=== PATIENT | female | born 1985 | race Caucasian/White ===

== ENCOUNTER 2018-05-26 12:50 | Inpatient (IN) | payer OTHER ==
[2018-05-26 13:11] VITALS: BMI 29.2
[2018-05-26] MEDS ORDERED: SODIUM CHLORIDE 0.9% 500 ML INFUS.BAG IV ONE (13:58)
--- NOTE | 2018-05-26 14:28 | PDOC ---
Attending Attestation - HPI HPI: 05/26/18 14:57 The patient is a 33 year old female with a significant past medical history of seizure disorder (on Keppra, carbamazepine, and topiramate chronically and follows with Dr. Clinton with last visit 12/2017), baseline mild confusion, and UTI who presents to the ER with worsening paranoia over the past couple of days. Patient notes she has been confused at baseline for the past year, but has been increasingly more confused. Patient states her keppra dose was increased from 500 twice a day to 2000 twice a day over the past week by [facility] where she was admitted for multiple seizures. Patient reports he had a CT there which was normal. Patient has not followed up with a neurologist since her discharge from [facility]. The patient denies chest pain, shortness of breath, headache, and dizziness. Denies fever, chills, nausea, vomit, diarrhea, and constipation. Denies dysuria, frequency, urgency, and hematuria. Allergies: NKA Past surgical history: None reported. Social history: No reported alcohol, drug, or cigarette use. <Amalia Sue - Last Filed: 05/26/18 14:57> - Resident Resident Name: Sharon Hutton - ED Attending Attestation I have performed the following: I have examined & evaluated the patient, The case was reviewed & discussed with the resident, I agree w/resident's findings & plan, Exceptions are as noted - Physicial Exam PE: GENERAL: Awake, alert, and fully oriented, in no acute distress HEAD: No signs of trauma EYES: PERRLA, EOMI, sclera anicteric, conjunctiva clear ENT: Auricles normal inspection, hearing grossly normal, nares patent, oropharynx clear without exudates. Moist mucosa NECK: Normal ROM, supple, no lymphadenopathy, JVD, or masses LUNGS: Breath sounds equal, clear to auscultation bilaterally. No wheezes, and no crackles HEART: Regular rate and rhythm, normal S1 and S2, no murmurs, rubs or gallops ABDOMEN: Soft, nontender, normoactive bowel sounds. No guarding, no rebound. No masses EXTREMITIES: Normal range of motion, no edema. No clubbing or cyanosis. No cords, erythema, or tenderness NEUROLOGICAL: Cranial nerves II through XII grossly intact. Normal speech, normal gait SKIN: Warm, Dry, normal turgor, no rashes or lesions noted. - Medical Decision Making Pt with recent change in keppra dose, now with paranoia, unusual behavior. She is taking total of 4G of keppra a day, likely her level is too high. Will check labs and levels, plan for admission. <Jennifer Cardenas - Last Filed: 05/26/18 17:44>
--- NOTE | 2018-05-26 14:40 | PDOC ---
History of Present Illness - General Chief Complaint: Altered Mental Status Stated Complaint: CONFUSED,ALTERED MENTAL Time Seen by Provider: 05/26/18 13:34 History Source: Patient Exam Limitations: Other (confusion) - History of Present Illness Initial Comments: This is a 33 YOF with h/o seizure disorder (on Keppra, carbamazepine, and topiramate chronically and follows with Dr. Clinton with last visit 12/2017), baseline mild confusion, and UTI, who p/w worsened paranoia over the past few days, in the setting of large increase in her daily Keppra dose (from 500 bid to 2000 bid, up-titrated over the past week). The notes that she has been paranoid that the people talking outside her bedroom window are laughing at her and coming to get her. She also has been yelling out strange phrases at spiritism, and has been forgetting basic information at home (e.g. about whether or not she drank orange juice an hour before, about who brought her the orange juice, and other simple facts that she should remember). She always has a baseline level of confusion for the past year, but this is much worse than her baseline. She was admitted at [facility] last week for multiple seizures, had a head CT reported as normal by the patient's , and had a medication increase of her Keppra over the past week. They recommended an electroencephalogram but the patient has not yet gotten this or followed up with her neurologist. The patient herself denies suicidal or homicidal ideation and denies auditory or visual hallucinations. Past History - Past Medical History Allergies/Adverse Reactions: Allergies Allergy/AdvReac Type Severity Reaction Status Date / Time No Allergy Information Allergy Verified 05/26/18 13:02 Available Home Medications: Ambulatory Orders Topiramate [Topamax] 200 mg PO BID #60 tablet 03/30/14 Carbamazepine 200 mg PO BID 05/26/18 levETIRAcetam [Keppra -] 1,000 mg PO BID 05/26/18 COPD: No DVT: No Seizures: Yes - Suicide/Smoking/Psychosocial Hx Smoking History: Never smoked Have you smoked in the past 12 months: No Hx Alcohol Use: No Drug/Substance Use Hx: No Substance Use Type: None Review of Systems - Review of Systems Able to Perform ROS?: Yes Constitutional: No: Chills, Fever, Unexplained wgt Loss HEENTM: No: Nose Congestion, Throat Pain Respiratory: No: Cough, Shortness of Breath Cardiac (ROS): No: Chest Pain, Palpitations ABD/GI: No: Constipated, Diarrhea, Nausea, Vomiting : No: Burning, Dysuria Musculoskeletal: No: Back Pain, Neck Pain Integumentary: No: Bruising, Rash Neurological: Yes: Other (confusion). No: Headache, Numbness, Tingling, Weakness, Dizziness Psychiatric: Yes: Sleep Pattern Change, Other (paranoia) Endocrine: No: Unexplained Weight Gain, Unexplained Weight Loss *Physical Exam - Vital Signs Last Vital Signs Temp Pulse Resp BP Pulse Ox 97.1 F L 61 16 122/70 97 05/26/18 13:03 05/26/18 13:03 05/26/18 13:03 05/26/18 13:03 05/26/18 13:03 - Physical Exam General Appearance: Yes: Nourished, Appropriately Dressed, Other (a bit confused but pleasant and appears comfortable, accompanied by at bedside who answers the bulk of the questions, patient contributes little to conversation but does speak 1-2 words occasionally, states this is her baseline). No: Apparent Distress HEENT: positive: EOMI, ZURI, Normal Voice, Hearing Grossly Normal. negative: Scleral Icterus (R), Scleral Icterus (L), Nasal Congestion Neck: positive: Trachea midline, Supple. negative: Tender, Rigid Respiratory/Chest: positive: Lungs Clear, Normal Breath Sounds. negative: Respiratory Distress, Crackles, Rhonchi, Stridor, Wheezing Cardiovascular: positive: Regular Rhythm, Regular Rate, S1, S2. negative: Edema , JVD, Murmur Gastrointestinal/Abdominal: positive: Normal Bowel Sounds, Flat, Soft. negative : Tender, Organomegaly, Pulsatile Mass, Guarding Musculoskeletal: positive: Normal Inspection. negative: Decreased Range of Motion, Vertebral Tenderness Extremity: positive: Normal Capillary Refill, Normal Inspection, Normal Range of Motion. negative: Tender, Cyanosis Integumentary: positive: Normal Color, Dry, Warm. negative: Erythema, Rash, Bruising Neurologic: positive: hadoop admin II-XII NML intact, Fully Oriented (to own name, date, age, place, situation), Alert, Normal Mood/Affect, Normal Response, Motor Strength 5/5, Confused. negative: Facial Droop, Numbness, Sensory Deficit, Disoriented Heart Score/ECG Review #1 Sinus rhythm, rate of 69, normal axis and intervals, no ischemic changes ED Treatment Course - LABORATORY CBC & Chemistry Diagram: 05/26/18 15:00 05/26/18 15:00 - Medications Given in the ED: ED Medications Discontinued Medications Generic Name Dose Route Start Last Admin Trade Name Mukesh PRN Reason Stop Dose Admin Sodium Chloride 1,000 ml 05/26/18 13:58 05/26/18 14:27 Normal Saline - IV 05/26/18 13:59 1,000 ml ONCE ONE Administration Medical Decision Making - Medical Decision Making Adult Pt p/w acute worsening of mental status. Initial Vital Signs Temp Pulse Resp BP Pulse Ox 97.1 F L 61 16 122/70 97 05/26/18 13:03 05/26/18 13:03 05/26/18 13:03 05/26/18 13:03 05/26/18 13:03 Exam: As noted in Physical Exam section. DDX IBNLT: structural (e.g. epilepsy, brain tumor, CVA/TIA, NPH, CJD, ACS, PE, Mamadou disease), infectious (e.g. UTI, PNA, bronchitis, cellulitis, meningitis, neurosyphilis, HIV-associated dementia), VS abnormalities (e.g. fever, hypertensive emergency), toxic-metabolic (e.g. medications, drugs e.g. serotonin syndrome/neuroleptic malignant syndrome or street drugs, electrolytes , hypothyroid, B12 deficiency), psychiatric (e.g. delirium, dementia, psychosis) , TENDERNESS (HUS with AMS, fever, poss seizure), etc. W/U ordered: CBCD CMP Mg Phos TSH Serum preg UA UCx EKG CXR Antiepileptic levels (Keppra, Tegretol, carbamazepine) TX ordered: IVF EKG: Reviewed; results as noted in ECG Review section. 05/26/18 14:[address] Clinton (patient's neurologist). He had not been contacts by he patient or [facility] during or after the admission last week. He did not know about the increase in her Keppra dosage. He will try to come see the patient in the ED today when he has a moment. He recommends staying on the 2000 mg Keppra bid. He recommends considering low-dose Ativan (0.25) bid prn to get through the weekend. He will see her in the office on Tuesday. Laboratory Tests 05/26/18 05/26/18 05/26/18 14:28 15:00 15:00 WBC 6.3 RBC 4.43 Hgb 13.4 Hct 39.4 MCV 88.8 MCH 30.2 MCHC 34.0 RDW 12.9 Plt Count 266 MPV 9.2 Absolute Neuts (auto) 3.6 Neutrophils % 57.2 Lymphocytes % 33.9 D Monocytes % 5.5 Eosinophils % 2.6 Basophils % 0.8 Nucleated RBC % 0 Sodium Potassium Chloride Carbon Dioxide Anion Gap BUN Creatinine Creat Clearance w eGFR Random Glucose Calcium Phosphorus Magnesium Total Bilirubin AST ALT Alkaline Phosphatase Total Protein Albumin TSH Serum , Qual Negative Urine Color Ltyellow Urine Appearance Clear Urine pH 5.0 Ur Specific [place] 1.010 Urine Protein Negative Urine Glucose (UA) Negative Urine Ketones Negative Urine Blood Negative Urine Nitrite Negative Urine Bilirubin Negative Urine Urobilinogen Negative Ur Leukocyte Esterase 1+ H Urine WBC (Auto) 1 Urine RBC (Auto) None Ur Epithelial Cells Rare Opiates Screen Methadone Screen Barbiturate Screen Carbamazepine Phencyclidine Screen Ur Amphetamines Screen MDMA (Ecstasy) Screen Benzodiazepines Screen Cocaine Screen U Marijuana (THC) Screen Alcohol, Quantitative 05/26/18 05/26/18 05/26/18 15:00 15:00 15:00 WBC RBC Hgb Hct MCV MCH MCHC RDW Plt Count MPV Absolute Neuts (auto) Neutrophils % Lymphocytes % Monocytes % Eosinophils % Basophils % Nucleated RBC % Sodium 140 Potassium 4.3 Chloride 107 Carbon Dioxide 22 Anion Gap 11 BUN 6 L Creatinine 0.7 Creat Clearance w eGFR > 60 Random Glucose 98 Calcium 8.6 Phosphorus 3.6 Magnesium 2.2 Total Bilirubin 0.2 AST 14 L ALT 21 Alkaline Phosphatase 114 Total Protein 7.8 Albumin 3.7 TSH 1.30 Serum , Qual Urine Color Urine Appearance Urine pH Ur Specific [place] Urine Protein Urine Glucose (UA) Urine Ketones Urine Blood Urine Nitrite Urine Bilirubin Urine Urobilinogen Ur Leukocyte Esterase Urine WBC (Auto) Urine RBC (Auto) Ur Epithelial Cells Opiates Screen Negative Methadone Screen Negative Barbiturate Screen Negative Carbamazepine 10.6 Phencyclidine Screen Negative Ur Amphetamines Screen Negative MDMA (Ecstasy) Screen Negative Benzodiazepines Screen Negative Cocaine Screen Negative U Marijuana (THC) Screen Negative Alcohol, Quantitative < 5.0 Reassessment: Exam unchanged. ADMIT Pt to be admitted given acute change in mental status. They are unsafe for discharge at this time. They require further hospital observation, workup, and treatment. Microblog sent to [facility] for admission (Patient's PCP is Jack Rabago). 05/26/18 17:25 Spoke with Marie who is on for [facility]. In agreement patient to be admitted to Med/Surg Obs. Decision to Admit order placed to Dr. Wilhelm. Head CT is ordered by [facility] given change in mental status. Vital Signs Temperature 98.2 F 05/26/18 17:48 Pulse Rate 85 05/26/18 17:48 Respiratory Rate 17 05/26/18 17:48 Blood Pressure 138/89 05/26/18 17:48 O2 Sat by Pulse Oximetry (%) 98 05/26/18 17:48 *DC/Admit/Observation/Transfer Diagnosis at time of Disposition: Agitation Altered mental status Qualifiers: Altered mental status type: unspecified Qualified Code(s): R41.82 - Altered mental status, unspecified - Discharge Dispostion Condition at time of disposition: Guarded Decision to Admit order: Yes - Referrals - Patient Instructions - Post Discharge Activity
[2018-05-26 15:26] LABS: URINE APPEARANCE CLEAR; URINE BILIRUBIN NEGATIVE (<2.0 mg/dL); URINE COLOR LTYELLOW; URINE GLUCOSE (UA) NEGATIVE (NEGATIVE); URINE KETONE NEGATIVE (NEGATIVE); URINE NITRITE NEGATIVE (NEGATIVE); URINE PROTEIN NEGATIVE (NEGATIVE); URINE UROBILINOGEN NEGATIVE mg/dL (0.2-1.0)
[2018-05-26 15:28] LABS: URINE LEUK ESTERASE 1+ (NEGATIVE)
[2018-05-26 15:39] LABS: ALBUMIN 3.7 g/dl (3.4-5.0); ANION GAP 11 MMOL/L (8-16); BLOOD UREA NITROGEN 6 mg/dL (7-18); CALCIUM 8.6 mg/dL (8.5-10.1); CHLORIDE 107 mmol/L (98-107); CO2 22 mmol/L (21-32); GLUCOSE,RANDOM 98 mg/dL (74-106); MAGNESIUM 2.2 mg/dL (1.8-2.4); POTASSIUM 4.3 mmol/L (3.5-5.1); SGOT/AST 14 U/L (15-37); SODIUM 140 mmol/L (136-145)
[2018-05-26 15:40] LABS: COCAINE, UR NEGATIVE ng/ml (CUTOFF=300); METHADONE, UR NEGATIVE ng/ml (CUTOFF=300); OPIATES, URI NEGATIVE ng/ml (CUTOFF=300); PHENCYCLIDINE,URINE NEGATIVE ng/ml (CUTOFF=25); URINE AMPHETAMINES NEGATIVE ng/ml (CUTOFF=500); URINE BARBITURATES NEGATIVE ng/ml (CUTOFF=200); URINE BENZODIAZEPINES NEGATIVE ng/ml (CUTOFF=200)
[2018-05-26 15:44] LABS: EPI CELLS RARE /HPF (FEW)
[2018-05-26 15:50] LABS: BASO % 0.8 % (0-2.0); EOS % 2.6 % (0-4.5); HEMATOCRIT 39.4 % (32.4-45.2); HEMOGLOBIN 13.4 GM/dL (10.7-15.3); LYMPH % 33.9 % (8-40); MCH 30.2 pg (25.7-33.7); MEAN CELL VOLUME 88.8 fl (80-96); MEAN PLT VOLUME 9.2 fl (7.5-11.1); MONO % 5.5 % (3.8-10.2); NEUT % 57.2 % (42.8-82.8); PLATELET COUNT 266 K/MM3 (134-434); RBC 4.43 M/mm3 (3.60-5.2); RDW 12.9 % (11.6-15.6); WHITE BLOOD COUNT 6.3 K/mm3 (4.0-10.0)
[2018-05-26 15:51] LABS: ALK PHOS 114 U/L (45-117); BILIRUBIN,TOTAL 0.2 mg/dL (0.2-1.0); CREATININE 0.7 mg/dL (0.55-1.02); PHOSPHOROUS 3.6 mg/dL (2.5-4.9); SGPT/ALT 21 U/L (12-78); TOT PROT 7.8 g/dl (6.4-8.2)
[2018-05-26] MEDS: TOPIRAMATE 200 MG TABLET (FP) PO SCH (21:57)
[2018-05-26] MEDS: levETIRAcetam 500 MG TABLET (FP) PO SCH (21:57)
[2018-05-26] MEDS: carBAMazepine 200 MG TABLET PO SCH (21:57)
--- NOTE | 2018-05-26 22:18 | HP ---
CHIEF COMPLAINT: confusion, ams, paranoia PCP: Dr. Randolph, PCP. Dr. Clinton, neurology HISTORY OF PRESENT ILLNESS: Patient is a 33 year old female with a significant past medical history of epilepsy (On Keppra, carbamazepine, topiramate) and frequent UTIs. She was evaluated in the ED today after her noticed that she was more paranoid with thoughts that others are trying to harm her. Per , patient is increasingly suspicious of her family members and at times believes that they are trying to harm her, poison her or that others are out to hurt her. She is also reported to be yelling out to strangers and has become more forgetful. Her provided the history during the exam as patient stayed mostly quiet even when I asked her questions and deferred to him for answers. reports that patient has a baseline level of mild confusion but for the past year it has progressed and worsened in the last 3 weeks. Patient was admitted to [facility] last week for epilepsy and had a CT performed that was reportedly normal. Her Keppra dose was increased to 2000mg BID. Patient was supposed to follow up with a repeat EEG outpatient, but did not follow up and has not had one for numerous years. Patient denies suicidal or homicidal ideation and denies auditory or visual hallucinations. She answers questions with minimal eye contact. She defers to her to answer questions for her. ER course was notable for: (1) head ct pending (2) (3) Recent Travel: PAST MEDICAL HISTORY: epilepsy (On Keppra, carbamazepine, topiramate) and frequent UTIs. PAST SURGICAL HISTORY: Social History: Smoking: n/a Alcohol: n/a Drugs: n/a Family History: Allergies No Allergy Information Available Allergy (Verified 05/26/18 13:02) HOME MEDICATIONS: Home Medications Medication Instructions Recorded Topiramate [Topamax] 200 mg PO BID #60 tablet 03/30/14 Carbamazepine 200 mg PO BID 05/26/18 levETIRAcetam [Keppra -] 1,000 mg PO BID 05/26/18 PHYSICAL EXAMINATION Vital Signs - 24 hr 05/26/18 05/26/18 05/26/18 13:03 17:48 21:00 Temperature 97.1 F L 98.2 F Pulse Rate 61 Pulse Rate [ 85 Left Radial] Respiratory 16 17 Rate Blood Pressure 122/70 Blood Pressure 138/89 [Right Arm] O2 Sat by Pulse 97 98 98 Oximetry (%) 05/26/18 05/26/18 21:49 22:00 Temperature 97.5 F L 97.5 F L Pulse Rate 63 63 Pulse Rate [ Left Radial] Respiratory 18 18 Rate Blood Pressure 140/88 140/88 Blood Pressure [Right Arm] O2 Sat by Pulse Oximetry (%) GENERAL: Awake, alert, forgetful, withdrawn HEAD: Normal with no signs of trauma. EYES: Pupils equal, round and reactive to light, extraocular movements intact, sclera anicteric, conjunctiva clear. No lid lag. EARS, NOSE, THROAT: Ears normal, nares patent, oropharynx clear without exudates. Moist mucous membranes. NECK: Normal range of motion, supple without lymphadenopathy, JVD, or masses. LUNGS: Breath sounds equal, clear to auscultation bilaterally. No wheezes, and no crackles. No accessory muscle use. HEART: Regular rate and rhythm, normal S1 and S2 without murmur, rub or gallop. ABDOMEN: Soft, nontender, not distended, normoactive bowel sounds, no guarding, no rebound, no masses. No hepatomegaly or splenomegaly. MUSCULOSKELETAL: Normal range of motion at all joints. No bony deformities or tenderness. No CVA tenderness. UPPER EXTREMITIES: 2+ pulses, warm, well-perfused. No cyanosis. No clubbing. No peripheral edema. LOWER EXTREMITIES: 2+ pulses, warm, well-perfused. No calf tenderness. No peripheral edema. NEUROLOGICAL: withdrawn PSYCHIATRIC: flat affect Laboratory Results - last 24 hr 05/26/18 05/26/18 05/26/18 14:28 15:00 15:00 WBC 6.3 RBC 4.43 Hgb 13.4 Hct 39.4 MCV 88.8 MCH 30.2 MCHC 34.0 RDW 12.9 Plt Count 266 MPV 9.2 Absolute Neuts (auto) 3.6 Neutrophils % 57.2 Lymphocytes % 33.9 D Monocytes % 5.5 Eosinophils % 2.6 Basophils % 0.8 Nucleated RBC % 0 Sodium Potassium Chloride Carbon Dioxide Anion Gap BUN Creatinine Creat Clearance w eGFR Random Glucose Calcium Phosphorus Magnesium Total Bilirubin AST ALT Alkaline Phosphatase Total Protein Albumin TSH Serum , Qual Negative Urine Color Ltyellow Urine Appearance Clear Urine pH 5.0 Ur Specific [place] 1.010 Urine Protein Negative Urine Glucose (UA) Negative Urine Ketones Negative Urine Blood Negative Urine Nitrite Negative Urine Bilirubin Negative Urine Urobilinogen Negative Ur Leukocyte Esterase 1+ H Urine WBC (Auto) 1 Urine RBC (Auto) None Ur Epithelial Cells Rare Opiates Screen Methadone Screen Barbiturate Screen Carbamazepine Phencyclidine Screen Ur Amphetamines Screen MDMA (Ecstasy) Screen Benzodiazepines Screen Cocaine Screen U Marijuana (THC) Screen Alcohol, Quantitative 05/26/18 05/26/18 05/26/18 15:00 15:00 15:00 WBC RBC Hgb Hct MCV MCH MCHC RDW Plt Count MPV Absolute Neuts (auto) Neutrophils % Lymphocytes % Monocytes % Eosinophils % Basophils % Nucleated RBC % Sodium 140 Potassium 4.3 Chloride 107 Carbon Dioxide 22 Anion Gap 11 BUN 6 L Creatinine 0.7 Creat Clearance w eGFR > 60 Random Glucose 98 Calcium 8.6 Phosphorus 3.6 Magnesium 2.2 Total Bilirubin 0.2 AST 14 L ALT 21 Alkaline Phosphatase 114 Total Protein 7.8 Albumin 3.7 TSH 1.30 Serum , Qual Urine Color Urine Appearance Urine pH Ur Specific [place] Urine Protein Urine Glucose (UA) Urine Ketones Urine Blood Urine Nitrite Urine Bilirubin Urine Urobilinogen Ur Leukocyte Esterase Urine WBC (Auto) Urine RBC (Auto) Ur Epithelial Cells Opiates Screen Negative Methadone Screen Negative Barbiturate Screen Negative Carbamazepine 10.6 Phencyclidine Screen Negative Ur Amphetamines Screen Negative MDMA (Ecstasy) Screen Negative Benzodiazepines Screen Negative Cocaine Screen Negative U Marijuana (THC) Screen Negative Alcohol, Quantitative < 5.0 ASSESSMENT/PLAN: Patient is a 33 year old female with a significant past medical history of epilepsy (On Keppra, carbamazepine, topiramate) and frequent UTIs. She was evaluated in the ED today after her noticed that she was more paranoid with thoughts that others are trying to harm her. Per , patient is increasingly suspicious of her family members and at times believes that they are trying to harm her, poison her or that others are out to hurt her. She is also reported to be yelling out to strangers and has become more forgetful. Patient is being admitted for altered mentation and confusion in the setting of epilepsy. Neurology has been consulted. . Neuro: Metabolic encephalopathy in the setting of chronic seizures. Rule acute out infection. monitor electrolytes, daily labs and vitals. blood and urine cultures pending. Antiepileptic levels (Keppra, Tegretol, carbamazepine) pending. EEG per neurology. Continue Keppra, tegretol, carbamzepine. Maintain seizure precautions. Ativan 1mg prn ordered for breakthrough seizures. Continue to monitor mental status. Utox pending. Seizures/epilepsy: last reported seizure 1 week ago. Continue Keppra 2000mg bid, tegretol and carbamzepine. Ativan 1mg q6 prn for breakthrough seizures. Neuro consult. Psyche: Paranoia, anxiety: Unclear etiology. Medication side effect? Psyche evaluation. Monitor mental status. Maintain safety. fen ivf hydration monitor electrolytes regular diet prophy heparin bid physical therapy Visit type - Emergency Visit Emergency Visit: Yes ED Registration Date: 05/26/18 Care time: The patient presented to the Emergency Department on the above date and was hospitalized for further evaluation of their emergent condition. - New Patient This patient is new to me today: Yes Date on this admission: 05/26/18 - Critical Care Critical Care patient: No Hospitalist Screening - Colonoscopy Questionnaire Colonoscopy Questionnaire: Colonoscopy Questionnaire - Patient: 50 - 75 years old and never had a screening colonoscopy: Unknown History of colon or rectal polyps, or CA: Unknown History of IBD, Crohn's disease or UC: Unknown History of abdominal radiation therapy as a child: Unknown - Relative: 1 with colon or rectal CA, or polyps at age 60 or younger: Unknown Colon or rectal CA diagnosed at age 45 or younger: Unknown Multiple relatives with colon or rectal CA: Unknown - Outcome: Screening Result: Negative Screen
[2018-05-26] MEDS ORDERED: LORazepam 2 MG/ML SDV VIAL IVPUSH PRN (22:47)
[2018-05-26] MEDS: SODIUM CHLORIDE 1,000 ML IV SCH (23:45)
[2018-05-27 07:55] LABS: HEMATOCRIT 38.6 % (32.4-45.2); HEMOGLOBIN 12.9 GM/dL (10.7-15.3); MCH 29.7 pg (25.7-33.7); MCHC 33.4 g/dl (32.0-36.0); MEAN CELL VOLUME 88.7 fl (80-96); MEAN PLT VOLUME 8.6 fl (7.5-11.1); PLATELET COUNT 240 K/MM3 (134-434); RBC 4.35 M/mm3 (3.60-5.2); RDW 12.8 % (11.6-15.6); WHITE BLOOD COUNT 6.1 K/mm3 (4.0-10.0)
[2018-05-27 08:30] LABS: ANION GAP 10 MMOL/L (8-16); BLOOD UREA NITROGEN 5 mg/dL (7-18); CALCIUM 8.2 mg/dL (8.5-10.1); CHLORIDE 112 mmol/L (98-107); CO2 20 mmol/L (21-32); GLUCOSE,RANDOM 90 mg/dL (74-106); MAGNESIUM 2.1 mg/dL (1.8-2.4); POTASSIUM 3.8 mmol/L (3.5-5.1); SODIUM 142 mmol/L (136-145)
[2018-05-27 09:07] LABS: CREATININE 0.6 mg/dL (0.55-1.02)
[2018-05-27] MEDS ORDERED: PT OWN MED DRAWER 7, Y5N ONE ×6 (09:59→22:22)
[2018-05-27] MEDS: carBAMazepine 200 MG TABLET PO SCH ×2 (10:06→22:11)
[2018-05-27] MEDS: TOPIRAMATE 200 MG TABLET (FP) PO SCH ×2 (10:06→22:11)
[2018-05-27] MEDS: levETIRAcetam 500 MG TABLET (FP) PO SCH ×2 (10:06→22:10)
[2018-05-27] MEDS: SODIUM CHLORIDE 1,000 ML IV SCH (18:09)
--- NOTE | 2018-05-28 09:27 | PN ---
Progress Note, Physician History of Present Illness: notified today of admission - Current Medication List Current Medications: Active Medications Carbamazepine (Tegretol -) 200 mg PO BID [facility] Last Admin: 05/27/18 22:11 Dose: 200 mg Sodium Chloride (Normal Saline -) 1,000 mls @ 83 mls/hr IV ASDIR [facility] Last Admin: 05/26/18 23:45 Dose: 83 mls/hr Levetiracetam (Keppra -) 2,000 mg PO BID [facility] Last Admin: 05/27/18 22:10 Dose: 2,000 mg Lorazepam (Ativan Injection -) 1 mg IVPUSH Q6H PRN PRN Reason: breakthrough seizures Last Admin: 05/28/18 00:26 Dose: 1 mg Topiramate (Topamax -) 200 mg PO BID [facility] Last Admin: 05/27/18 22:11 Dose: 200 mg - Objective Vital Signs: Vital Signs Temperature 97.8 F 05/28/18 06:00 Pulse Rate 71 05/28/18 06:00 Respiratory Rate 18 05/28/18 06:00 Blood Pressure 128/85 05/28/18 06:00 O2 Sat by Pulse Oximetry (%) 98 05/27/18 21:00 Cardiovascular: Yes: S1, S2 Respiratory: Yes: Regular, CTA Bilaterally Gastrointestinal: Yes: Normal Bowel Sounds, Soft Neurological: Yes: Alert, Oriented Labs: CBC, BMP 05/27/18 07:00 05/27/18 07:00 Problem List - Problems (1) Adjustment reaction with anxiety and depression Assessment/Plan: -PSYCHIATRY CONSULT Code(s): F43.23 - ADJUSTMENT DISORDER WITH MIXED ANXIETY AND DEPRESSED MOOD (2) Seizure Assessment/Plan: -NEUROLOGY CONSULT -OBTAIN OLD RECORDS Code(s): R56.9 - UNSPECIFIED CONVULSIONS
[2018-05-28] MEDS: levETIRAcetam 500 MG TABLET (FP) PO SCH ×2 (10:07→21:34)
[2018-05-28] MEDS: carBAMazepine 200 MG TABLET PO SCH ×2 (10:08→21:35)
[2018-05-28] MEDS: TOPIRAMATE 200 MG TABLET (FP) PO SCH ×2 (10:08→21:35)
[2018-05-29] MEDS ORDERED: PT OWN MED DRAWER 7, Y5N ONE ×3 (09:56→21:26)
[2018-05-29] MEDS: levETIRAcetam 500 MG TABLET (FP) PO SCH ×2 (09:57→21:32)
[2018-05-29] MEDS: TOPIRAMATE 200 MG TABLET (FP) PO SCH ×2 (09:58→21:33)
[2018-05-29] MEDS: carBAMazepine 200 MG TABLET PO SCH ×2 (09:58→21:33)
--- NOTE | 2018-05-29 10:33 | CON.PSY ---
Psychiatry Consult Chief Complaint: 33 year old female brought to ER for ? psychotic like behaviour. reports that she has become inctreasingly paranoid sine discharge from [facility] for Seizure Disorder. Staff report she isbehaving strande and suspicious and not eating. Symptoms: reports: Hallucinations, Paranoia - Previous Psychiatric Treatment Outpatient: None Inpatient: None - Current Medications Current Medications: Active Medications Carbamazepine (Tegretol -) 200 mg PO BID [facility] Last Admin: 05/29/18 09:58 Dose: 200 mg Levetiracetam (Keppra -) 2,000 mg PO BID [facility] Last Admin: 05/29/18 09:57 Dose: 2,000 mg Lorazepam (Ativan Injection -) 1 mg IVPUSH Q6H PRN PRN Reason: breakthrough seizures Last Admin: 05/28/18 00:26 Dose: 1 mg Risperidone (Risperdal -) 1 mg PO BID [facility] Topiramate (Topamax -) 200 mg PO BID [facility] Last Admin: 05/29/18 09:58 Dose: 200 mg - Allergies Allergies: Allergies Allergy/AdvReac Type Severity Reaction Status Date / Time No Known Allergies Allergy Verified 02/18/16 00:27 - Current Living Status Usual Living Arrangement: With Spouse - Current Mental Status Evaluation Appearance: Disheveled Attitude: Suspicious - Affect Affect: Constrictive Appropriateness: Not Appropriate - Mood Mood: Anxious - Speech/Language Expressive: Coherent - Psychomotor Activity Psychomotor Activity: Slowed - Thought Process Thought Process: Circumstantial - Thought Content Hallucinations: Present Type: Visual Delusions: Absent Type: Persectory - Self Perception Self Perception: No Impairment - Cognition Attention: Alert Orientation: Time Memory, Short Term: 3/3 Memory, Remote with Promptin/3 - Concentration Serial Sevens Intact: No Simple Calculations Intact: No - Abstraction Proverb Interpretation: Impaired Judgement: Moderately Impaired - Insight Insight: Impaired - Impulse Control Impulse Control: Minimally Impaired - Suicidal Ideation Suicidal Ideation: No - Homicidal Ideation Homicidal Ideation: No Assessment/Plan 1) risperidal 1mg po bid. 2) will follow.
[2018-05-29] MEDS ORDERED: risperiDONE 1 MG TABLET (FP) PO ONE (11:00)
--- NOTE | 2018-05-29 15:01 | CON.NEURO ---
Consult Consult Specialty:: Oz Referred by:: .NET PROGRAMMER - History of Present Illness History of Present Illness: this is a 33-year-old right-handed [place]ayan-speaking female patient well known to me from the office with history of seizure disorder/mild mental retardation/ anxiety presented to the hospital I spoke to the emergency room on Tuesday who told me that the patient will be discharged as the patient came in with paranoia and no seizure activity patient had a recent seizure activity and she went to [facility] she was admitted for 3 days the didn't call me for any neurological consult. Patient is on a combination of Topamax which helps also the migraine headache Tegretol for seizure and Keppra for seizure. Patient has been on higher dosage of the Keppra to control her seizures she has been doing very well over the past 6-12 month. Since admission to the hospital patient with no reported seizure-like activity patient has been seen patient was started on risperidone. - History Source History Provided By: Patient - Past Medical History ...LMP: 06/20/14 - Alcohol/Substance Use Hx Alcohol Use: No History of Substance Use: reports: None - Smoking History Smoking history: Never smoked Have you smoked in the past 12 months: No Aproximately how many cigarettes per day: 0 - Social History Usual Living Arrangement: With Spouse ADL: Independent History of Recent Travel: No Home Medications - Allergies Allergies/Adverse Reactions: Allergies Allergy/AdvReac Type Severity Reaction Status Date / Time No Known Allergies Allergy Verified 02/18/16 00:27 - Home Medications Home Medications: Ambulatory Orders Topiramate [Topamax] 200 mg PO BID #60 tablet 03/30/14 Levetiracetam [Keppra] 2,000 mg PO BID 05/11/15 Topiramate [Topamax] 200 mg PO BID #60 tablet 06/09/15 Ibuprofen [Motrin -] 400 mg PO PRN PRN 02/18/16 Carbamazepine 200 mg PO BID 05/26/18 Folic Acid 1 mg PO BID 05/26/18 levETIRAcetam [Keppra -] 1,000 mg PO BID 05/26/18 Review of Systems - Review of Systems Constitutional: reports: No Symptoms Eyes: reports: No Symptoms Psychiatric: reports: Anxiety, Depression, Paranoia Physical Exam-Neuro Vital Signs: Vital Signs Temperature 98 F 05/29/18 09:00 Pulse Rate 70 05/29/18 09:00 Respiratory Rate 20 05/29/18 09:00 Blood Pressure 147/95 05/29/18 09:00 O2 Sat by Pulse Oximetry (%) 98 05/29/18 09:00 Constitutional: Yes: Well Nourished Neck: Yes: WNL Cardiovascular: Yes: WNL Labs: CBC, BMP 05/27/18 07:00 05/27/18 07:00 - Neuro Exam Level Of Consciousness: Yes: Oriented to Person, Oriented to Place, Oriented to Time Eyes: Yes: PERRLA Speech: WNL Dominant Hand: Right Cranial Nerves II-XII Intact: Yes Gag: Present DTR's: 1+ Left Bicep, 1+ Right Bicep, 1+ Left Brachioradialis, 1+ Right Brachioradialis Response to light touch: Normal Response to pain prick: Normal Response to temperature: Normal Problem List - Problems (1) Altered mental status Assessment/Plan: patient with a long-standing history of anxiety patient has been on Keppra which is very safe medication but associated with behavioral changes ppatient is seizure control No reported seizure since admission Patient was started on risperidone by psychiatrist My plan is to discharge the patient Start tapering the Keppra very slowly Start lamotrigine which will be a good seizure medication and behavioral medicine as a mood stabilizer thank you very much for referring this patient for neurological consultation Code(s): R41.82 - ALTERED MENTAL STATUS, UNSPECIFIED Qualifiers: Altered mental status type: unspecified Qualified Code(s): R41.82 - Altered mental status, unspecified (2) Seizure Code(s): R56.9 - UNSPECIFIED CONVULSIONS
--- NOTE | 2018-05-29 15:38 | PN ---
Progress Note, Physician Chief Complaint: EVENTS NOTED AND REVIEWED PATIENT IS SUSPICIOUS/PARANOID BEDSIDE - Current Medication List Current Medications: Active Medications Carbamazepine (Tegretol -) 200 mg PO BID [facility] Last Admin: 05/29/18 09:58 Dose: 200 mg Levetiracetam (Keppra -) 1,500 mg PO BID LORIN Lorazepam (Ativan Injection -) 1 mg IVPUSH Q6H PRN PRN Reason: breakthrough seizures Last Admin: 05/28/18 00:26 Dose: 1 mg Risperidone (Risperdal -) 1 mg PO BID LORIN Topiramate (Topamax -) 200 mg PO BID [facility] Last Admin: 05/29/18 09:58 Dose: 200 mg - Objective Vital Signs: Vital Signs Temperature 98.4 F 05/29/18 15:24 Pulse Rate 82 05/29/18 15:24 Respiratory Rate 18 05/29/18 15:24 Blood Pressure 118/88 05/29/18 15:24 O2 Sat by Pulse Oximetry (%) 98 05/29/18 09:00 Constitutional: Yes: Mild Distress Eyes: Yes: WNL HENT: Yes: WNL Neck: Yes: WNL Cardiovascular: Yes: WNL Respiratory: Yes: WNL Gastrointestinal: Yes: WNL Genitourinary: Yes: WNL Musculoskeletal: Yes: Muscle Weakness Extremities: Yes: WNL Edema: No Peripheral Pulses WNL: Yes Integumentary: Yes: WNL Wound/Incision: Yes: Clean/Dry Neurological: Yes: Pre-Existing Deficit, Seizure, Other ...Motor Strength: WNL Psychiatric: Yes: Other Labs: CBC, BMP 05/27/18 07:00 05/27/18 07:00 Problem List - Problems (1) Paranoid disorder Code(s): F22 - DELUSIONAL DISORDERS (2) Schizophrenia Code(s): F20.9 - SCHIZOPHRENIA, UNSPECIFIED (3) Adjustment reaction with anxiety and depression Code(s): F43.23 - ADJUSTMENT DISORDER WITH MIXED ANXIETY AND DEPRESSED MOOD (4) Altered mental status Code(s): R41.82 - ALTERED MENTAL STATUS, UNSPECIFIED Qualifiers: Altered mental status type: unspecified Qualified Code(s): R41.82 - Altered mental status, unspecified (5) Seizure disorder Code(s): G40.909 - EPILEPSY, UNSP, NOT INTRACTABLE, WITHOUT STATUS EPILEPTICUS (6) Tremor Code(s): R25.1 - TREMOR, UNSPECIFIED (7) UTI (lower urinary tract infection) Code(s): N39.0 - URINARY TRACT INFECTION, SITE NOT SPECIFIED Assessment/Plan D/W DR [facility] WILL START KEPPRA TO TAPER 1500MG BID FROM 200MG BID CONTINUE RISPERDOL 1MG BID TOPAMAX/TEGRETOL CONTINUE WILL ADD LAMICTAL 100MG DAILY AT DISCHARGE ONCE CLEARED BY PSYCHIATRY SEIZURE PRECAUTIONS
[2018-05-29] MEDS ORDERED: risperiDONE 1 MG TABLET (FP) PO SCH (22:00)
--- NOTE | 2018-05-30 10:45 | PN ---
Progress Note (short form) - Note Progress Note: Patient seen for Psych follow up.Alert, pleasant, coperative, making good eye contact and smiling. Appears better and does not appear to be Hallucinating or delusional at5 this time. Patient eating well. Not displaying any bselfc damaging behaviour. PLan; Reduce Risperidone 1mg po hs only. 2) discharge home when medically stable.
[2018-05-30] MEDS: levETIRAcetam 500 MG TABLET (FP) PO SCH (11:08)
[2018-05-30] MEDS: TOPIRAMATE 200 MG TABLET (FP) PO SCH (11:09)
[2018-05-30] MEDS: carBAMazepine 200 MG TABLET PO SCH (11:09)
[2018-05-30 15:07] VITALS: BP 112/76; PULSE 79; TEMP 98.5
--- NOTE | 2018-05-30 15:26 | DS ---
Physical Examination Vital Signs: Vital Signs Temperature 98.5 F 05/30/18 15:06 Pulse Rate 79 05/30/18 15:06 Respiratory Rate 18 05/30/18 15:06 Blood Pressure 112/76 05/30/18 15:06 O2 Sat by Pulse Oximetry (%) 98 05/29/18 21:00 Constitutional: Yes: No Distress Eyes: Yes: WNL HENT: Yes: WNL Neck: Yes: WNL Cardiovascular: Yes: WNL Respiratory: Yes: WNL Gastrointestinal: Yes: WNL Renal/: Yes: WNL Musculoskeletal: Yes: WNL Extremities: Yes: WNL Edema: No Peripheral Pulses WNL: Yes Integumentary: Yes: WNL Wound/Incision: Yes: Clean/Dry Neurological: Yes: WNL ...Motor Strength: WNL Psychiatric: Yes: Other Labs: CBC, BMP 05/27/18 07:00 05/27/18 07:00 Discharge Summary Reason For Visit: ALTERED MENTAL STATUS,AGITATION Current Active Problems Adjustment reaction with anxiety and depression (Acute) Agitation (Acute) Altered mental status (Acute) Paranoid disorder (Acute) Schizophrenia (Acute) Procedures: Principal: CT SCAN HEAD Hospital Course: ADMITTED SEIZURE D/O ACUTE PSYCHOSIS SCIZOPHRENIA, TREATED WITH RISPERDOL, PSYCHIATRY AND NEURO EVAL. PATIENT WILL BE TAPERED OFF KEPPRA AND STARTED ON LAMICTAL. WILL NEED NEUROLOGY EVAL IN 1 WEEK. Condition: Improved - Instructions Diet, Activity, Other Instructions: KEPPRA TAPERING DOSE 500MG TABS TAKE 3 TABS IN MORNING AND 3 TABS AT NIGHT FOR 7 DAYS THEN 2 TABS IN THE MORNING AND 2 TABS AT NIGHT FOR 7 DAYS THEN 1 TAB IN MORNING AND 1 TAB AT NIGHT FOR 7 DAYS THEN 1 TAB DAILY FOR 7 DAYS THEN STOP START LAMICTAL 100MG DAILY AND SEE DR [facility]UR[facility]Y IN 1 WEEK THEN SEE YOUR PRIMARY DOCTOR ARMANDO TOLBERT IN 1-2 WEEKS FOR FOLLOW UP Disposition: HOME - Home Medications Comprehensive Discharge Medication List: Ambulatory Orders Topiramate [Topamax] 200 mg PO BID #60 tablet 03/30/14 Levetiracetam [Keppra] 2,000 mg PO BID 05/11/15 Topiramate [Topamax] 200 mg PO BID #60 tablet 06/09/15 Ibuprofen [Motrin -] 400 mg PO PRN PRN 02/18/16 Carbamazepine 200 mg PO BID 05/26/18 Folic Acid 1 mg PO BID 05/26/18 levETIRAcetam [Keppra -] 1,000 mg PO BID 05/26/18 Lamotrigine [Lamictal -] 100 mg PO DAILY #30 tablet 05/30/18 Risperidone [Risperdal -] 1 mg PO BID #60 tablet 05/30/18 levETIRAcetam [Keppra -] 500 mg PO BID #90 tablet 05/30/18
[2018-05-31] MEDS ORDERED: risperiDONE 1 MG TABLET (FP) PO SCH (10:00)
== END 2018-05-30 17:27 | disposition home or self-care (01) | DRG 760 ==
LOC: JER 12:50 → JERBED 16:55 → MERGE 16:55 → J8W 20:48
PROVIDERS: ADMIT Family Medicine; ATTEND Family Medicine
DX: F22 Delusional disorders (principal); G93.41 Metabolic encephalopathy; G40.909 Epilepsy, unspecified, not intractable, without status epilepticus; F43.23 Adjustment disorder with mixed anxiety and depressed mood; F20.9 Schizophrenia, unspecified; R25.1 Tremor, unspecified; N39.0 Urinary tract infection, site not specified; R41.82 Altered mental status, unspecified
CPT/HCPCS: 36415; 70450-TC; 80048; 80053; 80156; 80201; 80307; 81003; 81015; 82607; 82746; 83735; 84100; 84443; 84703; 85025; 85027; 87040; 87086; 99283-25; J2794; J7030

== ENCOUNTER → 2018-11-28 | Emergency (ER) | payer OTHER ==
[~2018-11-28] MED LIST: TOPIRAMATE 200 MG TABLET (FP) PO SCH; levETIRAcetam 500 MG TABLET (FP) PO SCH
--- NOTE | 2018-11-28 16:40 | PDOC ---
Rapid Medical Evaluation Time Seen by Provider: 11/28/18 16:32 Medical Evaluation: Allergies Allergy/AdvReac Type Severity Reaction Status Date / Time No Known Allergies Allergy Verified 02/18/16 00:27 11/28/18 16:34 I have performed a brief in-person evaluation of this patient. The patient presents with a chief complaint of: sent by neuro for admit Pertinent physical exam findings: Slow to respond to questions. CNII-XII grossly intact. I have ordered the following: labs, urine, ekg, cxr The patient will proceed to the ED for further evaluation. 11/28/18 16:40 Discharge Disposition - Diagnosis Seizure disorder - Referrals - Patient Instructions - Post Discharge Activity
[2018-11-28 16:42] VITALS: BP 143/97; PULSE 82; TEMP 98.5; BMI 30.9
[2018-11-28 17:14] LABS: EOS % 1.5 % (0-4.5); HEMATOCRIT 40.7 % (32.4-45.2); HEMOGLOBIN 14.1 GM/dL (10.7-15.3); LYMPH % 29.8 % (8-40); MCH 30.1 pg (25.7-33.7); MCHC 34.6 g/dl (32.0-36.0); MONO % 6.6 % (3.8-10.2); NEUT % 61.1 % (42.8-82.8); PLATELET COUNT 301 K/MM3 (134-434); RBC 4.68 M/mm3 (3.60-5.2); RDW 13.5 % (11.6-15.6); WHITE BLOOD COUNT 8.6 K/mm3 (4.0-10.0)
[2018-11-28 17:23] LABS: URINE APPEARANCE CLEAR; URINE BILIRUBIN NEGATIVE (<2.0 mg/dL); URINE COLOR COLORLESS; URINE GLUCOSE (UA) NEGATIVE (NEGATIVE); URINE KETONE NEGATIVE (NEGATIVE); URINE LEUK ESTERASE NEGATIVE (NEGATIVE); URINE NITRITE NEGATIVE (NEGATIVE); URINE PROTEIN NEGATIVE (NEGATIVE); URINE UROBILINOGEN NEGATIVE mg/dL (0.2-1.0)
[2018-11-28 17:26] LABS: HCG,QUALITATIVE URINE Negative
[2018-11-28 17:32] LABS: ALBUMIN 3.8 g/dl (3.4-5.0); ALK PHOS 144 U/L (45-117); ANION GAP 7 MMOL/L (8-16); BILIRUBIN,TOTAL 0.2 mg/dL (0.2-1); BLOOD UREA NITROGEN 8 mg/dL (7-18); CALCIUM 8.8 mg/dL (8.5-10.1); CHLORIDE 106 mmol/L (98-107); CO2 21 mmol/L (21-32); CREATININE 0.7 mg/dL (0.55-1.3); GLUCOSE,RANDOM 108 mg/dL (74-106); SGPT/ALT 23 U/L (13-61); SODIUM 134 mmol/L (136-145); TOT PROT 8.1 g/dl (6.4-8.2)
[2018-11-28 17:33] LABS: POTASSIUM 3.8 mmol/L (3.5-5.1); SGOT/AST 19 U/L (15-37)
--- NOTE | 2018-11-28 17:51 | HP ---
Admitting History and Physical - Primary Care Physician PCP: Diane Clinton - Admission History of Present Illness: this is a very pleasant 33-year-old right-handed woman presents to the [facility] for elective admission for video EEG monitoring patient with a history of epilepsy for many years. Patient speaks only Pashto patient presents with her family and her . Patient has no children patient describes about to 3 seizures a month. Patient used to have many seizures in the past. Patient was advised to be admitted to [facility] for 72-96 hour admission to monitor her at night and control her antiseizure medication patient is currently on 3 antiseizure medication that would be continued and tapered accordingly. 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 ...LMP: 06/20/14 - Smoking History Smoking history: Never smoked Have you smoked in the past 12 months: No Aproximately how many cigarettes per day: 0 - Alcohol/Substance Use Hx Alcohol Use: No History of Substance Use: reports: None - Social History ADL: Independent History of Recent Travel: No Home Medications - Allergies Allergies/Adverse Reactions: Allergies Allergy/AdvReac Type Severity Reaction Status Date / Time No Known Allergies Allergy Verified 11/28/18 16:37 - Home Medications Home Medications: Ambulatory Orders Topiramate [Topamax] 200 mg PO BID #60 tablet 06/09/15 Carbamazepine 200 mg PO BID 05/26/18 Folic Acid 1 mg PO BID 05/26/18 Lamotrigine [Lamictal -] 200 mg PO DAILY 11/28/18 Family Disease History - Family Disease History Family History: Denies (seizure) Review of Systems - Review of Systems Constitutional: reports: No Symptoms Eyes: reports: No Symptoms HENT: reports: No Symptoms Physical Examination Vital Signs: Vital Signs Temperature 98.5 F 11/28/18 16:37 Pulse Rate 82 11/28/18 16:37 Respiratory Rate 16 11/28/18 16:37 Blood Pressure 143/97 11/28/18 16:37 O2 Sat by Pulse Oximetry (%) 98 11/28/18 16:37 Constitutional: Yes: Well Nourished Eyes: Yes: WNL HENT: Yes: WNL Neurological: Yes: Alert, Oriented, Babinski negative ...Motor Strength: WNL Labs: CBC, BMP 11/28/18 16:54 11/28/18 16:54 Problem List - Problems (1) Seizure disorder Assessment/Plan: 1. Please admitted to the medical floor for monitoring 2. Video EEG hookup 3. Seizure precautions. 4. Continue Topamax the same. 5. Continue Keppra the same. 6. Continue lamotrigine the same. 7. Blood work tomorrow. 8. Ativan when necessary seizure. 9. Prolactin level stat when there is a seizure. Code(s): G40.909 - EPILEPSY, UNSP, NOT INTRACTABLE, WITHOUT STATUS EPILEPTICUS
--- NOTE | 2018-11-29 15:15 | EKG ---
Test Reason : Blood Pressure : / mmHG Vent. Rate : 066 BPM Atrial Rate : 066 BPM P-R Int : 170 ms QRS Dur : 088 ms QT Int : 416 ms P-R-T Axes : 039 040 038 degrees QTc Int : 436 ms NORMAL SINUS RHYTHM NORMAL ECG WHEN COMPARED WITH ECG OF 23-DEC-2014 14:42, NO SIGNIFICANT CHANGE WAS FOUND Confirmed by ANTONETTE PAVON MD ([id number]) on 11/29/2018 3:15:02 PM Referred By: Confirmed By:ANTONETTE PAVON MD
[2018-11-30 02:15] LABS: BILIRUBIN,DIRECT < 0.1 mg/dL (0.0-0.2)
== END | disposition home or self-care (01) ==
LOC: JER 16:31
DX: G40.909 Epilepsy, unspecified, not intractable, without status epilepticus (principal)
CPT/HCPCS: 36415; 80053; 80076; 80156; 80175; 80201; 81003; 84703; 85025; 87086; 93005; 93010; 99281-25